=== PATIENT | male | born 1975 | race Caucasian/White ===

== ENCOUNTER 2016-07-10 14:28 | Emergency (ER) | payer MEDICAID ==
--- NOTE | 2016-07-10 14:31 | EDPHY ---
H & P Source: Patient Exam Limitations: No limitations - Medical/Surgical History Hx Asthma: No Hx Chronic Respiratory Disease: No Hx Diabetes: No Hx Cardiac Disease: No Hx Renal Disease: No Hx Cirrhosis: No Hx Alcoholism: No Hx HIV/AIDS: No Hx Splenectomy or Spleen Trauma: No Other PMH: PNA - Social History Smoking Status: Current every day smoker Drug Use: Marijuana Time Seen by Provider: 07/10/16 14:30 HPI/ROS: CHIEF COMPLAINT: Suicidal ideation HISTORY OF PRESENT ILLNESS: The patient presents to the emergency department on an M1 psychiatric hold with complaints of suicidal ideation. The patient reports a plan to commit suicide by hanging. The patient reports he is depressed over number of stressors in life including currently being homeless. The patient denies any additional attempts in the form of ingestion or attempted trauma. The patient does not have access to a handgun. The patient does report being treated for attention deficit hyperactivity disorder and depression in the past. He has been off medications since 2011. REVIEW OF SYSTEMS: A comprehensive 10 point review of systems is otherwise negative aside from elements mentioned in the history of present illness. (Ramsey Arriola) - Physical Exam Exam: General Appearance: Alert, no distress Eyes: Pupils equal and round no pallor or injection ENT, Mouth: Mucous membranes moist Respiratory: There are no retractions, lungs are clear to auscultation Cardiovascular: Regular rate and rhythm Gastrointestinal: Abdomen is soft and nontender, no masses, bowel sounds normal Neurological: A&O, normal motor function, normal sensory exam, normal cranial nerves Skin: Warm and dry, no rashes Musculoskeletal: Neck is supple nontender Extremities: symmetrical, full range of motion Psychiatric: Alert and oriented x3, cooperative, non agitated, endorses symptoms of depression and suicidal ideation with plan by hanging (Ramsey Arriola) Constitutional: Initial Vital Signs Temperature (C) 36.7 C 07/10/16 14:38 Heart Rate 114 H 07/10/16 14:38 Respiratory Rate 20 07/10/16 14:38 Blood Pressure 98/75 L 07/10/16 14:38 O2 Sat (%) 96 07/10/16 14:38 O2 Delivery Mode Room Air O2 (L/minute) 36.8 Allergies/Adverse Reactions: No Known Allergies Allergy (Unverified 06/15/16 20:27) Home Medications: Medication Instructions Recorded Fluticasone Nasal [Flonase Nasal 1 sprays NASAL DAILY #1 mdi 06/15/16 [place] (RX)] Medical Decision Making ED Course/Re-evaluation: The patient presents to the ED with complaints of suicidal ideation. The patient has no acute medical complaints. The patient was medically cleared for psychiatric evaluation. Given presence of methamphetamine the patient's urine, his psychiatric evaluation has been delayed 12 hours. The patient remained stable throughout his stay in ED. The patient is currently on a 72 hour mental health hold which was initiated by philipp. Plan will be for psychiatric evaluation in the emergency department. The patient is turned over to Dr. Johnson at shift change pending psychiatric placement. (Ramsey Arriola) Care assumed at 7:00 a.m. with mental health evaluation pending. Patient was evaluated, felt to require mental health admission, signed out to Dr. Fagan at 4:00 p.m. with inpatient placement pending. (Nima Washington) 6:00am- The mental health worker evaluated the patient and given his + amphetamine use, would like to have him re-evaluated later this morning. 7:00am- The case is signed out to the oncoming provider Dr Washington. 6:30 a.m.- The patient has been stable throughout my shift, he is currently awaiting placement. (Renee Parsons) 700: The patient is signed out to me at change of shift by Dr. Parsons. I reviewed the patient's medical record. The patient is stable. I rechecked the patient while here. Patient was stable during his stay. 1500: Patient is signed out to Dr. Fagan at change of shift (Misa Madsen) 3pm--I assumed care of this patient at shift change. 11:00 p.m.-patient was signed over to Dr. Parsons at shift change. Inpt dispo pending. 07/12/16: assumed care at shift change (3pm). No issues during my shift. d/w mental health, hoping for 3N admission later tonight. Signed over to Dr. Garvey at shift change. (Rehana Fagan) 0608: re-evaluation this time no acute events overnight. Patient resting comfortably. Patient is pending re-evaluation this morning. Patient signed over at 7:[address] Barakat. (Devonte Garvey) Other Provider: I assumed care of this patient from Dr. Arriola at 9:00 p.m.. He was under my care for 2 hours, during which time he remained cooperative. His care is transferred to Dr. Parsons at 11:20 p.m. on 07/10/16. (Kenzie Johnson) Patient signed out to me at 0700 pending re-evaluation. At 12:30pm, patient has been re-evaluated by P and found to still need admission secondary to high risk of suicidality. They have written for another 72 hold and are seeking placement. I have signed the patient out to Dr. Johnson at 1500. ( Toi Barakat) - Data Points Laboratory Results: Laboratory Results 07/10/16 14:35 07/10/16 14:35 07/13/16 11:20 Urine Opiates Screen NEGATIVE (NEGATIVE) Urine Barbiturates NEGATIVE (NEGATIVE) Ur Phencyclidine Scrn NEGATIVE (NEGATIVE) Ur Amphetamine Screen NON-NEGATIVE H (NEGATIVE) U Benzodiazepines Scrn NEGATIVE (NEGATIVE) Urine Cocaine Screen NEGATIVE (NEGATIVE) U Marijuana (THC) Screen NON-NEGATIVE H (NEGATIVE) Medications Given: Discontinued Medications Ibuprofen (Motrin) 400 mg PO EDNOW ONE Stop: 07/13/16 08:54 Last Admin: 07/13/16 09:02 Dose: 400 mg Departure - Departure Clinical Impression: Polysubstance abuse, Depression Condition: Good Instructions: Methamphetamine Abuse (ED), Depression (ED) Referrals: [facility] [Outside] - As per Instructions
[2016-07-10 14:46] LABS: % IMMATURE GRANULYOCYTES 0.2 % (0.0-1.1); ABSOLUTE IMMATURE GRANULOCYTES 0.01 10^3/uL (0.00-0.10); ADD DIFF? NO; ADD MORPH? NO; ADD SCAN? NO; ATYPICAL LYMPHOCYTE FLAG 70 (0-99); FRAGMENT RBC FLAG 20 (0-99); HEMATOCRIT 45.2 % (40.0-51.0); HEMOGLOBIN 15.4 g/dL (13.7-17.5); LEFT SHIFT FLG 0 (0-99); LIPEMIA HEMOLYSIS FLAG 90 (0-99); MEAN CELL HEMOGLOBIN 30.4 pg (27.9-34.1); MEAN CELL HEMOGLOBIN CONCENTR. 34.1 g/dL (32.4-36.7); MEAN CELL VOLUME 89.3 fL (81.5-99.8); MEAN PLATELET VOLUME 9.2 fL (8.7-11.7); PLATELET CLUMPS FLAG 0 (0-99); PLATELET COUNT 457 10^3/uL (150-400); RED BLOOD CELL COUNT 5.06 10^6/uL (4.40-6.38); RED CELL DISTRIBUTION WIDTH 13.2 % (11.5-15.2)
[2016-07-10 14:57] LABS: ANION GAP 10 mEq/L (8-16); CALCIUM 9.1 mg/dL (8.5-10.4); CARBON DIOXIDE 24 mEq/l (22-31); CHLORIDE 106 mEq/L (97-110); CREATININE 0.9 mg/dL (0.7-1.3); ETHANOL SERUM < 10 mg/dL (0-10); GLOMERULAR FILTRATION RATE > 60; GLUCOSE 99 mg/dL (70-100); POTASSIUM 4.6 mEq/L (3.5-5.2); SODIUM 140 mEq/L (134-144)
[2016-07-13] MEDS ORDERED: IBUPROFEN 200 MG TAB PO ONE (08:53)
[2016-07-13 17:21] VITALS: RESP 16
[2016-07-14 16:17] VITALS: BP 123/72; PULSE 83; TEMP 98.4; O2SAT 96
== END 2016-07-14 16:11 ==
DX: F32.9 Major depressive disorder, single episode, unspecified (principal); F19.10 Other psychoactive substance abuse, uncomplicated; F17.200 Nicotine dependence, unspecified, uncomplicated
CPT/HCPCS: 80305; G0480; L1830

== ENCOUNTER 2016-08-14 08:22 | Emergency (ER) | payer MEDICAID ==
[2016-08-14 08:38] VITALS: RESP 18
--- NOTE | 2016-08-14 09:20 | EDPHY ---
H & P Smoking Status: Current every day smoker Time Seen by Provider: 08/14/16 08:56 HPI/ROS: CHIEF COMPLAINT: Right rib pain, suicidal ideation HISTORY OF PRESENT ILLNESS: 40-year-old male presents to the emergency department with the [facility] complaining of right rib pain over last 2 days. He denies any known trauma or injury. He does not feel short of breath. However he does have pain with palpation in the right lower rib area. He denies abdominal pain. Denies any other chest pain. Denies URI symptoms. The patient has a history of mental health and has not been on his medications. He feels suicidal. He does not have a plan. He denies homicidal ideation. Denies auditory or visual hallucinations. REVIEW OF SYSTEMS: Constitutional: No fever, no chills. Eyes: No double or blurry vision. ENT: No sore throat. Respiratory: Right rib pain as above. No cough, no shortness of breath. Cardiac: No chest pain. Gastrointestinal: No abdominal pain, vomiting or diarrhea. Genitourinary: No dysuria. Musculoskeletal: No neck or back pain. Skin: No rashes. Neurological: No headache. (Veronica Webb) Past Medical/Surgical History: "mental health problems" (Veronica Webb) Social History: homeless (Veronica Webb) Physical Exam: General Appearance: Alert, no distress. No physical signs of trauma to his head. Eyes: Pupils equal and round. Extraocular motions are all intact. ENT: Mouth: Mucous membranes moist. Respiratory: No wheezing, rhonchi, or rales, lungs are clear to auscultation. Reproducible pain with palpation to the right anterior lower chest wall near the mid axillary line. No palpable crepitus or other bony abnormality. No physical signs of trauma. No bruising. Cardiovascular: Regular rate and rhythm. Gastrointestinal: Abdomen is soft and nontender, no masses, no rebound or guarding, bowel sounds normal. Specifically no tenderness with palpation in the right upper quadrant. No CVA tenderness bilaterally. Neurological: Alert and oriented x 3, cranial nerves II through XII grossly intact Skin: Warm and dry, no rashes. Musculoskeletal: Nontender to palpate along the cervical, thoracic or lumbar spine. Neck is supple. Extremities: Full range of motion and no peripheral edema. Psychiatric: Patient is oriented X 3, there is no agitation. (Veronica Webb) Constitutional: Initial Vital Signs Temperature (C) 36.5 C 08/14/16 08:33 Heart Rate 56 L 08/14/16 08:33 Respiratory Rate 18 08/14/16 08:33 Blood Pressure 111/79 08/14/16 08:33 O2 Sat (%) 95 08/14/16 08:33 O2 Delivery Mode Room Air Allergies/Adverse Reactions: No Known Allergies Allergy (Verified 08/14/16 08:32) Home Medications: Medication Instructions Recorded Fluticasone Nasal [Flonase Nasal 1 sprays NASAL DAILY #1 mdi 06/15/16 [place] (RX)] Medical Decision Making - Diagnostics Imaging: Chest x-ray reveals no acute pulmonary disease. Specifically no evidence of pneumothorax or obvious rib fracture. This is reviewed by myself and the PAC system. Radiology interpretation to follow. (Veronica Webb) ED Course/Re-evaluation: 40-year-old male presents to the emergency department complaining of right rib pain and suicidal ideation. Chest x-ray is unremarkable. The patient has reproducible pain with palpation to the right anterior chest wall. Do not think further imaging studies are necessary. I doubt pulmonary embolism. Denies pleuritic chest pain. He does not feel short of breath. Again he has reproducible pain with palpation. Nontender to palpate in the abdomen. He has no reported trauma. I spoke with the long term nurse at 3:03 a.m. [phone] and informed them that he has been medically cleared. They do not need any laboratory studies for medical clearance. The patient is currently in police custody. He is not on an M1 hold. He has been medically cleared for long term. He will be discharged with the [place] [employer]. (Veronica Webb) I did not see this patient while he was in the emergency department. However his care was discussed with the PA while the patient was in the department. I agree with treatment plan and management (Tenzin Stinson) Differential Diagnosis: Depression including functional and major depression, situational depression, medication side effect, drugs and alcohol abuse. Right rib pain including but not limited to contusion, musculoskeletal pain, pulmonary embolism, pneumonia, pneumothorax (Veronica Webb) Departure - Departure Disposition: Home, Routine, Self-Care Clinical Impression: Suicidal ideation, Right-sided chest wall pain Condition: Good Instructions: Chest Wall Pain (ED) Additional Instructions: Ibuprofen 400 mg every 8 hours as needed for pain. Return if you feel short of breath or if he develops any other pain in her chest or difficulty breathing. You have been medically cleared for long term. Referrals: [facility],. [Primary Care Provider] - As per Instructions
[2016-08-14 10:24] VITALS: BP 132/83; PULSE 62; TEMP 97.3; O2SAT 96
== END 2016-08-14 10:25 | disposition home or self-care (01) ==
LOC: EDUNIT#
DX: R45.851 Suicidal ideations (principal); R07.89 Other chest pain

== ENCOUNTER 2016-09-03 10:00 | Emergency (ER) | payer MEDICAID ==
[2016-09-03 10:12] VITALS: RESP 18
--- NOTE | 2016-09-03 11:03 | EDPHY ---
H & P Stated Complaint: COUGH AND CONGESTION X 4 DAYS Time Seen by Provider: 09/03/16 10:35 HPI/ROS: CHIEF COMPLAINT: Sinus congestion HISTORY OF PRESENT ILLNESS: The patient is a 40-year-old man who comes to the emergency department complaining of 4 days sinus congestion. He states that he has had a runny nose. No sore throat. No headache. He does have a dry cough but denies shortness of breath. He states that he has coughed so hard that he has some pain his right anterior ribs. No chest pain. No rash. No history of pulmonary disease. REVIEW OF SYSTEMS: Constitutional: denies: chills, fever, recent illness, recent injury EENTM: See HPI Respiratory: SEE HPI Cardiac: denies: chest pain, irregular heart rate, lightheadedness, palpitations Gastrointestinal/Abdominal: denies: abdominal pain, diarrhea, nausea, vomiting, blood streaked stools Genitourinary: denies: dysuria, frequency, hematuria, pain Musculoskeletal: denies: joint pain, muscle pain Skin: denies: lesions, rash, jaundice, bruising Neurological: denies: headache, numbness, paresthesia, tingling, dizziness, weakness Hematologic/Lymphatic: denies: blood clots, easy bleeding, easy bruising Immunologic/allergic: denies: HIV/AIDS, transplant EXAM: GENERAL: Well-appearing, well-nourished and in no acute distress. HEAD: Atraumatic, normocephalic. EYES: Pupils equal round and reactive to light, extraocular movements intact, sclera anicteric, conjunctiva are normal. ENT: TMs normal, sinus congestion , oropharynx clear without exudates. Moist mucous membranes. NECK: Normal range of motion, supple without lymphadenopathy or JVD. LUNGS: Breath sounds clear to auscultation bilaterally and equal. No wheezes rales or rhonchi. HEART: Regular rate and rhythm without murmurs, rubs or gallops. ABDOMEN: Soft, nontender, normoactive bowel sounds. No guarding, no rebound. No masses appreciated. BACK: No CVA tenderness, no spinal tenderness, step-offs or deformities EXTREMITIES: Normal range of motion, no pitting or edema. No clubbing or cyanosis. NEUROLOGICAL: Cranial nerves II through XII grossly intact. Normal speech, normal gait. 5/5 strength, normal movement in all extremities, normal sensation PSYCH: Normal mood, normal affect. SKIN: Warm, dry, normal turgor, no visible rashes or lesions. Source: Patient Exam Limitations: No limitations - Personal History Current Tetanus/Diphtheria Vaccine: Yes Current Tetanus Diphtheria and Acellular Pertussis (TDAP): Yes - Medical/Surgical History Hx Asthma: No Hx Chronic Respiratory Disease: No Hx Diabetes: No Hx Cardiac Disease: No Hx Renal Disease: No Hx Cirrhosis: No Hx Alcoholism: No Hx HIV/AIDS: No Hx Splenectomy or Spleen Trauma: No Other PMH: PNA, L knee pain - Family History Significant Family History: No pertinent family hx - Social History Smoking Status: Current every day smoker Alcohol Use: Sober Drug Use: None Constitutional: Initial Vital Signs Temperature (C) 36.5 C 09/03/16 10:09 Heart Rate 112 H 09/03/16 10:09 Respiratory Rate 18 09/03/16 10:09 Blood Pressure 106/65 09/03/16 10:09 O2 Sat (%) 94 09/03/16 10:09 O2 Delivery Mode Room Air Allergies/Adverse Reactions: No Known Allergies Allergy (Verified 09/03/16 10:08) Home Medications: Medication Instructions Recorded Fluticasone Nasal [Flonase Nasal 1 sprays NASAL DAILY #1 mdi 06/15/16 [place] (RX)] Acetaminophen/Codeine 300/30Mg 1 - 2 each PO Q6 PRN #14 tab 09/03/16 [Tylenol #3 (RX)] Benzonatate [Tessalon Pearles (RX)] 100 mg PO TID PRN #14 cap 09/03/16 Medical Decision Making - Diagnostics Imaging: X-ray: chest x-ray was obtained. I viewed the images myself on the PACS system. My interpretation of the images is: negative for acute disease . The radiologist interpretation is pending. ED Course/Re-evaluation: 11:15 a.m. we discussed the patient's x-ray and flu results. He is asking for something to treat him for the cough. I will try Tessalon Perles and codeine if needed. Patient understands and agrees with this plan. He declines further workup or testing at this time. Differential Diagnosis: Partial list of the Differential diagnosis considered include but were not limited to; upper respiratory tract infection, bronchitis influenza and although unlikely based on the history and physical exam, I also considered pneumothorax, rib fracture, sepsis. I discussed these differential diagnoses and the plan with the patient as well as the usual and expected course. The patient understands that the diagnosis is provisional and that in medicine we are not always correct and that further workup is often warranted. Usual and customary warnings were given. All of the patient's questions were answered. The patient was instructed to return to the emergency department should the symptoms at all worsen or return, otherwise to followup with the physician as we discussed. - Data Points Laboratory Results: 09/03/16 10:49 Influenza Typ A,B (DFA) NEGATIVE FOR FLU (NEGATIVE) Medications Given: Discontinued Medications Hydrocodone Bitart/Acetaminophen ([place] 5/325) 2 tab PO EDNOW ONE Stop: 09/03/16 11:20 Last Admin: 09/03/16 11:24 Dose: 2 tab Benzonatate (Tessalon Pearles) 100 mg PO EDNOW ONE Stop: 09/03/16 11:16 Last Admin: 09/03/16 11:24 Dose: 100 mg Departure - Departure Disposition: Home, Routine, Self-Care Clinical Impression: Upper respiratory tract infection Qualifiers: URI type: unspecified viral URI Qualified Code(s): J06.9 - Acute upper respiratory infection, unspecified Condition: Fair Instructions: Upper Respiratory Infection (ED) Referrals: Rajni Cox DO [Doctor of Osteopathy] - As per Instructions Prescriptions: Acetaminophen/Codeine 300/30Mg [Tylenol #3 (RX)] 1 - 2 each PO Q6 PRN #14 tab PRN Reason: *Cough Benzonatate [Tessalon Pearles (RX)] 100 mg PO TID PRN #14 cap PRN Reason: Cough, Moderate
[2016-09-03] MEDS ORDERED: BENZONATATE 100 MG CAP PO ONE (11:15)
[2016-09-03 11:16] VITALS: BP 113/62; PULSE 86; TEMP 98.1; O2SAT 95
[2016-09-03] MEDS ORDERED: HYDROCODONE/APAP 5/325 TAB PO ONE (11:19)
== END 2016-09-03 11:30 | disposition home or self-care (01) ==
DX: J06.9 Acute upper respiratory infection, unspecified (principal); F17.200 Nicotine dependence, unspecified, uncomplicated

== ENCOUNTER 2016-11-16 11:22 | Emergency (ER) | payer MEDICAID ==
[2016-11-16 11:27] VITALS: TEMP 98.1
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
[2016-11-16 14:02] VITALS: BP 128/78; PULSE 77; RESP 16; O2SAT 97
== END 2016-11-16 14:00 | disposition home or self-care (01) ==
DX: S00.01XA Abrasion of scalp, initial encounter (principal); S49.91XA Unspecified injury of right shoulder and upper arm, initial encounter; F17.200 Nicotine dependence, unspecified, uncomplicated; W22.8XXA Striking against or struck by other objects, initial encounter; Y92.830 Public park as the place of occurrence of the external cause; Y99.8 Other external cause status; Y93.84 Activity, sleeping

== ENCOUNTER 2017-03-22 09:53 | Emergency (ER) | payer MEDICAID ==
[2017-03-22 10:57] LABS: % IMMATURE GRANULYOCYTES 0.3 % (0.0-1.1); ABSOLUTE IMMATURE GRANULOCYTES 0.03 10^3/uL (0.00-0.10); ADD DIFF? NO; ADD MORPH? NO; ADD SCAN? NO; ATYPICAL LYMPHOCYTE FLAG 20 (0-99); FRAGMENT RBC FLAG 0 (0-99); HEMATOCRIT 41.4 % (40.0-51.0); HEMOGLOBIN 14.2 g/dL (13.7-17.5); LEFT SHIFT FLG 0 (0-99); LIPEMIA HEMOLYSIS FLAG 90 (0-99); MEAN CELL HEMOGLOBIN 31.6 pg (27.9-34.1); MEAN CELL HEMOGLOBIN CONCENTR. 34.3 g/dL (32.4-36.7); MEAN CELL VOLUME 92.2 fL (81.5-99.8); PLATELET CLUMPS FLAG 0 (0-99); PLATELET COUNT 228 10^3/uL (150-400); RED BLOOD CELL COUNT 4.49 10^6/uL (4.40-6.38); RED CELL DISTRIBUTION WIDTH 13.2 % (11.5-15.2)
[2017-03-22 11:09] LABS: ANION GAP 10 mEq/L (8-16); CALCIUM 9.5 mg/dL (8.5-10.4); CARBON DIOXIDE 25 mEq/l (22-31); CHLORIDE 105 mEq/L (97-110); CREATININE 0.7 mg/dL (0.7-1.3); ETHANOL SERUM < 10 mg/dL (0-10); GLOMERULAR FILTRATION RATE > 60; GLUCOSE 108 mg/dL (70-100); POTASSIUM 3.9 mEq/L (3.5-5.2); SODIUM 140 mEq/L (134-144)
--- NOTE | 2017-03-22 12:32 | EDPHY ---
H & P Stated Complaint: can't sleep, wants to get back on meds Source: Patient Exam Limitations: No limitations - Personal History Current Tetanus/Diphtheria Vaccine: Yes Current Tetanus Diphtheria and Acellular Pertussis (TDAP): Yes Tetanus Vaccine Date: < 10 years - Medical/Surgical History Hx Asthma: No Hx Chronic Respiratory Disease: No Hx Diabetes: No Hx Cardiac Disease: No Hx Renal Disease: No Hx Cirrhosis: No Hx Alcoholism: No Hx HIV/AIDS: No Hx Splenectomy or Spleen Trauma: No Other PMH: PNA, L knee pain. ADHD, depression - Social History Smoking Status: Current every day smoker HPI/ROS: CHIEF COMPLAINT: Depression, suicidal HISTORY OF PRESENT ILLNESS: Patient admits to feeling depressed and suicidal as he has not had medication. The patient not have medication for nearly a year was says his depression has worsened over the past few days. He says that he is here for medication and evaluation. He wants to go to inpatient evaluation. He says that he will kill himself if he is discharged home without medication or treatment. He will not divulge a plan but says he has attempted to do so in the past. He does not provide any other associated complaints or any modifying factors. PSYCHIATRIC DIAGNOSES: Depression, attention deficit hyperactivity disorder PRIOR PSYCHIATRIC EVALUATIONS: Multiple M1/DETAINER: Héctor ONEIL/Dr. Washington, March 22 at 12:25 p.m. REVIEW OF SYSTEMS: Ten systems reviewed and are negative unless otherwise noted in the HPI EXAMINATION General Appearance: Alert, no distress, unkempt Head: normocephalic, atraumatic Eyes: Pupils equal and round, no conjunctival pallor or injection ENT, Mouth: Mucous membranes moist Neck: Normal inspection, supple, non-tender Respiratory: Lungs are clear to auscultation. No wheeze, rhonchi or crackles Cardiovascular: Regular rate and rhythm. No murmur Gastrointestinal: Abdomen is soft and nontender Back: non-tender, no bony abnormalities Neurological: A&O, nonfocal, normal gait Skin: Warm and dry, no rash Extremities: Nontender, no pedal edema Psychiatric: Suicidal with thoughts of self-harm without a specific plan. Feeling depressed. Flat affect. Intermittently Aggressive with his conversation. DIFFERENTIAL DIAGNOSES: Including but not limited to depression, suicidal ideation, homelessness MDM: 12:25 p.m. Suicidal ideology with depression. Patient will not divulge his plan but says that he is suicidal, due to depression likely medication. He says he will harm himself he is discharged home. Admits to previous attempt to depression lack of medication. M1 has been completed. He is medically cleared for evaluation at this time 1:30 p.m. EPS has been notified. They will provide evaluation of the patient 2:30 p.m. Patient is sleeping. He has had a meal here. He is still awaiting evaluation. 4:00 p.m. Notified by RN. Patient is to be evaluated sometime around or after 5:30 p.m. by EPS. He remains calm and cooperative. 5:00 p.m. Case discussed with Dr. Washington. He will assume care of the patient at this time. Patient is pending psychiatric evaluation. (Zechariah Anaya) Constitutional: Initial Vital Signs Temperature (C) 97.7 F 03/22/17 09:53 Heart Rate 76 03/22/17 09:53 Respiratory Rate 18 03/22/17 09:53 Blood Pressure 122/87 H 03/22/17 09:53 O2 Sat (%) 96 03/22/17 09:53 O2 Delivery Mode Room Air Allergies/Adverse Reactions: No Known Allergies Allergy (Verified 03/22/17 10:17) Home Medications: Medication Instructions Recorded NK [No Known Home Meds] 03/22/17 Medical Decision Making Other Provider: PHYSICIAN DOCUMENTATION: The patient was evaluated and managed by the Physician Research Executive and myself. I have reviewed the chart and agree with the findings and plan of care as documented. In addition, I examined the patient myself. History confirmed as worsening severe depression with suicidal ideation. Physical findings as follows : Patient is alert and has fluent speech. He has the covers pulled up over his head when I entered the room and is reluctant to make eye contact. He says he only that he is hungry. Labile affect. 1220: Patient was placed on a mental health hold by myself and physician housing assistant property manager Zechariah Anaya for severe depression with suicidal ideation. 1899: Patient has had evaluation and the plan is to admit to a CSU. 2199: Signed out to Gavin with inpatient psychiatric placement pending. I am the secondary supervising physician. (Nima Washington) 2199 care assumed by me from Dr. Washington pending placement. [address] Johnson pending placement. No issues during my care this patient overnight. (Braden Alonso) I assumed care of this patient from Dr. Alonso at 7 AM. Patient had no new complaints while under my care. Placement is pending. His care is being transferred to Dr. Barakat at 4:00 p.m.. (Kenzie Johnson) Patient accepted for transfer to inpatient psychiatric facility. EMS arrival at 5:45. (Toi Barakat) - Data Points Laboratory Results: Laboratory Results 03/22/17 10:25 03/22/17 10:25 Medications Given: Discontinued Medications Acetaminophen (Tylenol) 650 mg PO EDNOW ONE Stop: 03/22/17 17:42 Last Admin: 03/22/17 17:44 Dose: 650 mg Departure - Departure Disposition: Other Psych, Not Jude Clinical Impression: Suicidal ideation Condition: Good Referrals: NONE *PRIMARY CARE P,. [Primary Care Provider] - As per Instructions
[2017-03-22] MEDS ORDERED: ACETAMINOPHEN 325 MG TAB PO ONE (17:41)
[2017-03-23 09:20] VITALS: O2SAT 98
[2017-03-23 17:09] VITALS: BP 126/72; PULSE 79; RESP 18; TEMP 98.2
== END 2017-03-23 17:47 ==
LOC: EDUNIT#
DX: R45.851 Suicidal ideations (principal); F17.200 Nicotine dependence, unspecified, uncomplicated
CPT/HCPCS: 80305; G0480

== ENCOUNTER 2017-06-12 06:29 | Emergency (ER) | payer MEDICAID ==
[2017-06-12] MEDS ORDERED: PROMETHAZINE HCL 25 MG/ML INJ IVP ONE (06:33)
[2017-06-12] MEDS ORDERED: LOPERAMIDE HCL 2 MG CAP PO ONE (06:33)
[2017-06-12] MEDS ORDERED: NS 1,000 ML IV ONE (06:33)
[2017-06-12 06:37] VITALS: BP 105/80; TEMP 98.2
[2017-06-12 06:43] VITALS: PULSE 75; RESP 18; O2SAT 99
[2017-06-12 07:08] LABS: % IMMATURE GRANULYOCYTES 0.6 % (0.0-1.1); ABSOLUTE IMMATURE GRANULOCYTES 0.05 10^3/uL (0.00-0.10); ADD DIFF? NO; ADD MORPH? NO; ADD SCAN? NO; ATYPICAL LYMPHOCYTE FLAG 20 (0-99); FRAGMENT RBC FLAG 0 (0-99); HEMATOCRIT 44.3 % (40.0-51.0); HEMOGLOBIN 15.1 g/dL (13.7-17.5); LEFT SHIFT FLG 0 (0-99); LIPEMIA HEMOLYSIS FLAG 90 (0-99); MEAN CELL HEMOGLOBIN 31.5 pg (27.9-34.1); MEAN CELL HEMOGLOBIN CONCENTR. 34.1 g/dL (32.4-36.7); MEAN CELL VOLUME 92.3 fL (81.5-99.8); MEAN PLATELET VOLUME 9.9 fL (8.7-11.7); PLATELET CLUMPS FLAG 10 (0-99); PLATELET COUNT 242 10^3/uL (150-400); RED CELL DISTRIBUTION WIDTH 12.8 % (11.5-15.2)
--- NOTE | 2017-06-12 07:13 | EDPHY ---
H & P Smoking Status: Current every day smoker Time Seen by Provider: 06/12/17 06:31 HPI/ROS: HPI The patient presents with nausea, vomiting, diarrhea which have been present for the last 2 days. He says he has had multiple episodes of nonbloody nonbilious emesis associated with diarrhea occurring about every 30 min. He denies any abdominal pain. He is [facility] by [facility] from the [facility]. He has not had a fever. He does report some other people at the [facility] have similar symptoms.. REVIEW OF SYSTEMS Constitutional: No fever, no chills. Eyes: No discharge. ENT: No sore throat. Cardiovascular: No chest pain, no palpitations. Respiratory: No cough, no shortness of breath. Gastrointestinal: See HPI Genitourinary: No hematuria. Musculoskeletal: No back pain. Skin: No rashes. Neurological: No headache. PMHx: History of depression, PTSD Soc Hx: Homeless PHYSICAL General Appearance: Alert, no distress Eyes: Pupils equal and round no pallor or injection ENT, Mouth: Mucous membranes dry Respiratory: There are no retractions, lungs are clear to auscultation Cardiovascular: Regular rate and rhythm Gastrointestinal: Abdomen is soft and non-tender, no masses, bowel sounds normal Neurological: A&O, moves all extremities Skin: Warm and dry, no rashes Musculoskeletal: Neck is supple non tender Extremities: symmetrical, full range of motion Psychiatric: Patient is oriented X 3, there is no agitation (Renee Parsons) Constitutional: Initial Vital Signs Temperature (C) 36.8 C 06/12/17 06:33 Heart Rate 82 06/12/17 06:33 Respiratory Rate 19 06/12/17 06:33 Blood Pressure 105/80 06/12/17 06:33 O2 Sat (%) 96 06/12/17 06:33 O2 Delivery Mode Room Air Allergies/Adverse Reactions: No Known Allergies Allergy (Verified 03/22/17 10:17) Home Medications: Medication Instructions Recorded Loperamide HCl [Imodium 2 mg (*)] 2 mg PO PRN PRN #20 cap 06/12/17 Ondansetron Odt [Zofran Odt 4 mg 4 mg PO Q4 PRN #10 tab 06/12/17 (*)] Medical Decision Making ED Course/Re-evaluation: I took over care of this patient at 7:00 a.m.. This patient is here for nausea , vomiting and diarrhea. Labs are pending at this time. Tentative disposition is discharged to home if blood work is okay and patient tolerating oral fluids. 7:35 a.m., patient re-evaluated. He is sleeping. He appears comfortable. His blood work is on unremarkable except for a metabolic acidosis which is likely secondary to losing bicarbonate is diarrhea. His abdomen is benign. He is soft , nontender nondistended on repeat exam. He is tolerating oral fluids at this time. I feel he is safe for discharge. Follow-up and return to emergency department precautions reviewed with him. All of his questions were answered. He was discharged in good condition. (Juliette Shanks) Differential Diagnosis: This is a 41-year-old male, brought in by ambulance from the [facility] for vomiting, diarrhea for the last 2 days. Symptoms have gotten progressively worse. On exam, he has normal vital signs, he is generally well-appearing, his mucous membranes are dry, his abdominal exam is benign. In the emergency department, IV line was started and he was given 2 L IV fluids as well as antiemetics and Imodium. At change of shift, the case was signed out to Dr. Shanks. The patient has labs pending at this time. If they are normal, I feel the patient will be suitable for discharge. Differential diagnoses considered include viral gastroenteritis, toxin mediated enterocolitis, less likely appendicitis. (Renee Parsons) - Data Points Laboratory Results: Laboratory Results 06/12/17 06:55 06/12/17 06:55 06/12/17 06/12/17 06:55 06:55 WBC 8.17 10^3/uL 10^3/uL (3.80-9.50) RBC 4.80 10^6/uL 10^6/uL (4.40-6.38) Hgb 15.1 g/dL g/dL (13.7-17.5) Hct 44.3 % % (40.0-51.0) MCV 92.3 fL fL (81.5-99.8) MCH 31.5 pg pg (27.9-34.1) MCHC 34.1 g/dL g/dL (32.4-36.7) RDW 12.8 % % (11.5-15.2) Plt Count 242 10^3/uL 10^3/uL (150-400) MPV 9.9 fL fL (8.7-11.7) Neut % (Auto) 59.9 % % (39.3-74.2) Lymph % (Auto) 25.8 % % (15.0-45.0) [place] % (Auto) 10.6 % % (4.5-13.0) Eos % (Auto) 2.4 % % (0.6-7.6) Baso % (Auto) 0.7 % % (0.3-1.7) Nucleat RBC Rel Count 0.0 % % (0.0-0.2) Absolute Neuts (auto) 4.88 10^3/uL 10^3/uL (1.70-6.50) Absolute Lymphs (auto) 2.11 10^3/uL 10^3/uL (1.00-3.00) Absolute Monos (auto) 0.87 10^3/uL H 10^3/uL (0.30-0.80) Absolute Eos (auto) 0.20 10^3/uL 10^3/uL (0.03-0.40) Absolute Basos (auto) 0.06 10^3/uL 10^3/uL (0.02-0.10) Absolute Nucleated RBC 0.00 10^3/uL 10^3/uL (0-0.01) Immature Gran % 0.6 % % (0.0-1.1) Immature Gran # 0.05 10^3/uL 10^3/uL (0.00-0.10) Sodium 143 mEq/L mEq/L (134-144) Potassium 4.2 mEq/L mEq/L (3.5-5.2) Chloride 111 mEq/L H mEq/L (97-110) Carbon Dioxide 15 mEq/l L mEq/l (22-31) Anion Gap 17 mEq/L H mEq/L (8-16) BUN 15 mg/dL mg/dL (7-23) Creatinine 0.8 mg/dL mg/dL (0.7-1.3) Estimated GFR > 60 Glucose 95 mg/dL mg/dL (70-100) Calcium 9.1 mg/dL mg/dL (8.5-10.4) Total Bilirubin 0.4 mg/dL mg/dL (0.1-1.4) AST 18 IU/L IU/L (17-59) ALT 33 IU/L IU/L (21-72) Alkaline Phosphatase 66 IU/L IU/L (38-126) Total Protein 6.7 g/dL g/dL (6.3-8.2) Albumin 4.0 g/dL g/dL (3.5-5.0) Medications Given: Discontinued Medications Sodium Chloride (Ns) 1,000 mls @ 0 mls/hr IV EDNOW ONE; Wide Open PRN Reason: Protocol Stop: 06/12/17 06:34 Last Admin: 06/12/17 06:45 Dose: 1,000 mls Loperamide HCl (Imodium) 2 mg PO EDNOW ONE Stop: 06/12/17 06:34 Last Admin: 06/12/17 06:43 Dose: 2 mg Promethazine HCl (Phenergan) 12.5 mg IVP ONCE ONE Stop: 06/12/17 06:34 Last Admin: 06/12/17 06:45 Dose: 12.5 mg Departure - Departure Disposition: Home, Routine, Self-Care Clinical Impression: Vomiting and diarrhea Condition: Good Instructions: Gastroenteritis (ED) Additional Instructions: Please make sure to drink plenty of fluids. You should return to the emergency department if your worse in any way. Referrals: [facility],. [Clinic] - As per Instructions Prescriptions: Loperamide HCl [Imodium 2 mg (*)] 2 mg PO PRN PRN #20 cap PRN Reason: Diarrhea/Loose Stools Ondansetron Odt [Zofran Odt 4 mg (*)] 4 mg PO Q4 PRN #10 tab PRN Reason: Nausea/Vomiting, Can'T Take Po
[2017-06-12 07:18] LABS: ALANINE AMINOTRANSFERASE 33 IU/L (21-72); ALKALINE PHOSPHATASE 66 IU/L (38-126); ANION GAP 17 mEq/L (8-16); ASPARTATE AMINOTRANSFERASE 18 IU/L (17-59); BILIRUBIN,TOTAL 0.4 mg/dL (0.1-1.4); CALCIUM 9.1 mg/dL (8.5-10.4); CARBON DIOXIDE 15 mEq/l (22-31); CHLORIDE 111 mEq/L (97-110); CREATININE 0.8 mg/dL (0.7-1.3); GLOMERULAR FILTRATION RATE > 60; GLUCOSE 95 mg/dL (70-100); POTASSIUM 4.2 mEq/L (3.5-5.2); SODIUM 143 mEq/L (134-144); TOTAL PROTEIN 6.7 g/dL (6.3-8.2)
== END 2017-06-12 08:46 | disposition home or self-care (01) ==
LOC: EDUNIT#
DX: R11.0 Nausea (principal); R19.7 Diarrhea, unspecified; F17.200 Nicotine dependence, unspecified, uncomplicated; E86.9 Volume depletion, unspecified
CPT/HCPCS: 96374; J2550

== ENCOUNTER 2017-06-29 09:01 | Emergency (ER) | payer MEDICAID ==
--- NOTE | 2017-06-29 09:05 | EDPHY ---
H & P Time Seen by Provider: 06/29/17 09:02 HPI/ROS: CHIEF COMPLAINT: Coughing HISTORY OF PRESENT ILLNESS: Patient is a symptoms for 3 days. Cough which is paroxysmal and not associated with hemoptysis or leg swelling. No specific shortness of breath but decreased oral intake. Associated with some pain in the right side of his neck and difficulty turning his head to the right. Not better worse with anything, is a tobacco smoker. Subjective fevers and chills myalgias REVIEW OF SYSTEMS: Eye: no change in vision ENT: Sore throat Cardiac: no chest pain or syncope Pulmonary: HPI Abdomen: no vomiting, diarrhea, abdominal pain Musculoskeletal: HPI Skin: no rash Neuro: no headache Constitutional: HPI : no urinary symptoms A comprehensive 10 point review of systems is otherwise negative aside from elements mentioned in the history of present illness. PAST MEDICAL HISTORY: Negative, specifically negative for diabetes or seizure disorder Social history: Tobacco smoker, from the homeless nursing home General Appearance: Alert and conversant, cooperative. Eyes: No scleral icterus. ENT, Mouth: Normal mucous membranes. Pharyngeal erythema but no exudate, no trismus, no angioedema, uvula normal. Respiratory: Occasional end-expiratory wheeze, but speaks in full sentences and normal respiratory effort. No stridor or drooling. Cardiovascular: Regular rate and rhythm. Gastrointestinal: Abdomen is soft and non tender. Neurological: Alert, face symmetric, normal motor and sensory in extremities. Skin: Warm and dry, no rashes. No urticaria. Musculoskeletal: No calf tenderness. Psychiatric: Not agitated. Emergency Department course/MDM: Likely due his 3rd day of influenza or URI. Chest x-ray to rule out pneumonia. Albuterol and Atrovent neb, oral ibuprofen. His neck symptoms appear to be muscular, I can passively rotate and flex and extend his neck through full range of motion. I think deep space neck infection such as retropharyngeal abscess or epiglottitis is unlikely. Patient alert, otherwise healthy, does not have indications for antiviral treatment even if flu positive. Will treat with bronchodilator MDI and cough medication. Smoking Status: Current every day smoker Constitutional: Initial Vital Signs Temperature (C) 37.1 C 06/29/17 09:05 Heart Rate 87 06/29/17 09:05 Respiratory Rate 18 06/29/17 09:05 Blood Pressure 121/81 H 06/29/17 09:05 O2 Sat (%) 97 06/29/17 09:05 O2 Delivery Mode Room Air Allergies/Adverse Reactions: No Known Allergies Allergy (Verified 03/22/17 10:17) Home Medications: Medication Instructions Recorded NK [No Known Home Meds] 06/29/17 Medical Decision Making - Diagnostics Imaging Results: Imaging Impressions Chest X-Ray 06/29/17 09:11 Impression: Mild central perihilar bronchitis, with no focal infiltrate. Differential Diagnosis: Differential considered including but not limited to meningitis, influenza, bronchitis, pneumonia, deep space neck infection - Data Points Medications Given: Discontinued Medications Albuterol/Ipratropium (Duoneb) 3 ml IH EDNOW ONE Stop: 06/29/17 09:12 Last Admin: 06/29/17 09:23 Dose: 3 ml Ibuprofen (Motrin) 600 mg PO EDNOW ONE Stop: 06/29/17 09:12 Last Admin: 06/29/17 09:23 Dose: 600 mg Departure - Departure Disposition: Home, Routine, Self-Care Clinical Impression: Bronchitis, URI (upper respiratory infection) Condition: Good Instructions: Upper Respiratory Infection (ED) Referrals: [facility],. [Clinic] - As per Instructions
[2017-06-29 09:07] VITALS: RESP 18
[2017-06-29] MEDS ORDERED: IPRATROPIUM/ALBUTEROL 3 ML DEYVIAL IH ONE (09:11)
[2017-06-29] MEDS ORDERED: IBUPROFEN 600 MG TAB PO ONE (09:11)
[2017-06-29] MEDS ORDERED: ALBUTEROL INH PREPACK MDI TAKEHOME ONE (10:11)
[2017-06-29] MEDS ORDERED: ACETAMINOPHEN 325 MG TAB PO ONE (10:33)
[2017-06-29 10:34] VITALS: BP 147/80; PULSE 94; TEMP 99.3; O2SAT 93
== END 2017-06-29 11:07 | disposition home or self-care (01) ==
LOC: EDUNIT#
DX: J06.9 Acute upper respiratory infection, unspecified (principal); J40 Bronchitis, not specified as acute or chronic; F17.200 Nicotine dependence, unspecified, uncomplicated

== ENCOUNTER 2017-10-26 02:46 | Emergency (ER) | payer MEDICAID ==
[2017-10-26 02:51] VITALS: BP 124/86
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
== END 2017-10-26 03:19 | disposition home or self-care (01) ==
DX: S02.2XXA Fracture of nasal bones, initial encounter for closed fracture (principal); S03.2XXA Dislocation of tooth, initial encounter; F17.200 Nicotine dependence, unspecified, uncomplicated; Y08.89XA Assault by other specified means, initial encounter

== ENCOUNTER 2017-12-22 17:02 | Emergency (ER) | payer MEDICAID ==
[2017-12-22] MEDS ORDERED: FLUORESCEIN SODIUM 1 MG STRIP OP ONE (18:22)
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
[2017-12-22] MEDS ORDERED: PROPARACAINE/FLUORESCEIN SOD 5 ML OPHT.BTL ONE (18:27)
[2017-12-22] MEDS ORDERED: HYDROCOD/APAP 5/325 PREPACK#6 BTL TAKEHOME ONE (19:19)
[2017-12-22 19:50] VITALS: BP 128/92
--- NOTE | 2017-12-24 09:50 | ASMTCMCOM ---
CM Note CM Note Notes: PT record reviewed at the request of LORI Anaya. Follow up requested for ophthalmology and ENT. This SW spoke with Sarthak at [facility] who advised that pt's last appointment was on November 30 but he did not show. He martinez no appointment scheduled at the time of the call. Sarthak provided a contact number for the pt. of [phone]. Attempt to make contact but the number was no longer in service. No additional options for follow up at this time. Date Signed: 12/24/2017 09:49 AM Electronically Signed By:Ally Ramirez LCSW
== END 2017-12-22 19:54 | disposition home or self-care (01) ==
DX: S02.2XXA Fracture of nasal bones, initial encounter for closed fracture (principal); S02.32XA Fracture of orbital floor, left side, initial encounter for closed fracture; S01.81XA Laceration without foreign body of other part of head, initial encounter; R04.0 Epistaxis; F17.200 Nicotine dependence, unspecified, uncomplicated; W22.8XXA Striking against or struck by other objects, initial encounter